=== PATIENT | female | born 1965 | race Two or more races ===

== ENCOUNTER 2023-11-12 14:40 | Emergency (ER) | payer SELFPAY ==
[2023-11-12 14:44] VITALS: BP 158/81
[2023-11-12 15:31] VITALS: BMI 40.2
[2023-11-12 15:51] LABS: % Eosinophils 4.4 % (0-6); % Immature Granulocytes 0.2 % (0-0.5); % Lymphocytes 28.1 % (20.5-51.1); % Monocytes 8.6 % (1.7-9.3); % Neutrophils 57.7 % (42.2-75.2); Absolute Basophils 0.1 10^3/uL (0-0.2); Absolute Eosinophils 0.3 10^3/uL (0-0.7); Absolute Lymphocytes 1.7 10^3/uL (1.2-3.4); Absolute Monocytes 0.5 10^3/uL (0.1-0.6); Absolute Neutrophils 3.4 10^3/uL (1.4-6.5); Hemoglobin 13.5 g/dL (12.0-16.0); Mean Corp Hgb Conc. 35.5 g/dL (33.0-37.0); Mean Corpuscular Volume 81.7 fL (81.0-99.0); Mean Platelet Volume 11.9 fL (7.4-10.4); Nucleated Red Blood Cells % 0 %; Platelet Count 185 10^3/uL (130-400); Red Blood Cell Count 4.65 10^6/uL (4.20-5.40)
[2023-11-12 16:09] LABS: ALT (SGPT) 19 U/L (0-35); AST (SGOT) 24 U/L (14-36); Albumin 4.6 g/dl (3.5-5.0); Alkaline Phosphatase 49 U/L (38-126); Blood Urea Nitrogen 22 mg/dl (7-17); Calcium 9.8 mg/dl (8.4-10.2); Carbon Dioxide 25 mmol/L (22-30); Chloride 107 mmol/L (98-107); Estimated Creatinine Clearance > 125 ml/min; Glucose 101 mg/dl (70-99); Potassium 4.2 mmol/L (3.5-5.1); Sodium 141 mmol/L (135-145); Total Bilirubin 0.8 mg/dl (0.2-1.3); Total Protein 7.6 g/dl (6.3-8.2); eGFR > 60.00
[2023-11-12 17:54] VITALS: BP 143/88
--- NOTE | 2023-11-12 19:47 | ED.GENMED ---
History of Present Illness
General
Chief Complaint: Cough
Source: patient
Exam Limitations: none
Time Seen by Provider: 11/12/23 15:01
Nursing documentation reviewed up to this point in time: agreed with
Travel History
Have you had any contact with someone who has COVID-19?: No
Do you have any symptoms of coronavirus? Fever > 100 degrees, chills, cough, shortness of breath, sore throat, loss of taste or smell, muscle aches, or headache?: Yes
Symptoms:: cough
History of Present Illness
History of Present Illness:
Patient to ED with complaint of cough x 2 weeks. States sputum is brown and occasionally has blood streaks. Denies any cp/pressure, SOB. Denies fever/chills. Brought self to ED for eval. Notes occasional bilateral calf pain.
Past History
Past History
ED Past Medical History: Cancer (non-hodgkins lymphoma)
Review of Systems
Review of Systems
Allergies reviewed?: Yes
All Other Systems: ROS reviewed and negative except as documented in HPI and ROS
Constitutional: Reports no symptoms
EENT: Reports no symptoms
Respiratory: Reports cough
Cardiac: Reports no symptoms
ABD/GI: Reports no symptoms
: Reports no symptoms
Musculoskeletal: Reports no symptoms
Skin: Reports no symptoms
Neurological: Reports no symptoms
Psychiatric: Reports no symptoms
Phy Exam
General Physical Exam
General Presentation: well appearing and no apparent distress
General age: appears stated age
General Skin: warm and dry
General Habitus: normal
General Mental: alert
Cardiovascular Exam
Cardiovascular Exam: regular rate/rhythm and no edema
Pulmonary Exam
Pulmonary Exam: lungs clear and no respiratory distress
Musculoskeletal Exam
Musculoskeletal Exam: full ROM and neuro vasc intact
Skin Exam
Skin Exam: normal color, warm/dry and no rash
Psychiatric Exam
Psychiatric Exam: normal mood/affect
Course
Orders/Labs/Results
Orders:
Orders
11/12/23 15:20
CR Chest - 2 Views Urgent
Comment:
Reason For Exam: cough
11/12/23 15:42
Complete Blood Count/With Diff Urgent
Comprehensive Metabolic Panel Urgent
11/12/23 15:43
US Periph Venous LOWER Ext Rogeiro Urgent
Comment:
Reason For Exam: bilat calf pain
Abnormal Lab Results
11/12/23
15:42
MPV 11.9 H fL
(7.4-10.4)
BUN 22 H mg/dl
(7-17)
Glucose 101 H mg/dl
(70-99)
11/12/23 15:42
11/12/23 15:42
Vital Signs
Initial and Last Documented VS:
Initial Vital Signs
Temp Pulse Resp BP Pulse Ox
97.9 F 90 20 158/81 96
11/12/23 14:44 11/12/23 14:44 11/12/23 14:44 11/12/23 14:44 11/12/23 14:44
Last Documented Vital Signs
Temp Pulse Resp BP Pulse Ox
97.9 F 87 16 143/88 96
11/12/23 14:44 11/12/23 17:54 11/12/23 17:54 11/12/23 17:54 11/12/23 17:54
*Radiology
Radiology exam reviewed: radiology read reviewed
*Pulse Oximetry
Patient hypoxic: no
*Critical Care Note
Total Time (30-74mins, 75-104mins- exclusive of procedures): Not Applicable
ED Attending Note
-
Portions of this chart may have been created with voice recognition software.� Occasional wrong word or��sound alike� substitutions may have occurred due to the inherent limitations of voice recognition software.
Discharge Plan
Departure
Patient Disposition: Home (Routine Discharge)
Date of Disposition: 11/12/23
Time of Disposition: 17:12
Patient with high blood pressure during this ER visit?: No
Condition: Good
Covid-19: Not Applicable
Discharge Problem:
Cough
Instructions: Cough, Adult (DC)
Referrals:
[facility] [Outside[facility] - Next open appointment
UNKNOWN - PT DOES,NOT KNOW [Family Provider] -
Interventions
Interventions:
*Risk Screen - Suicide Last Done: 11/12/23 14:44
*General Assessment Last Done: 11/12/23 14:44
*Neglect/Abuse Screening Last Done: 11/12/23 14:44
ED- Fall Risk Assessment Last Done: 11/12/23 16:26
*ED COVID-19 Vaccine History Last Done: 11/12/23 17:56
*Nursing Disposition Last Done: 11/12/23 17:56
ED- Pulmonary Assessment Last Done: 11/12/23 16:26
Discharge Date and Time
Discharge Date/Time: 11/12/23 17:56
Print Language: SETSWANA
== END 2023-11-12 17:56 | disposition home or self-care (01) ==
LOC: EMR 14:40
PROVIDERS: Nurse Practitioner; EMERGENCY PHYSICIAN Emergency Medicine
DX: R05.9 Cough, unspecified (principal); M79.662 Pain in left lower leg; M79.661 Pain in right lower leg
CPT/HCPCS: 99284; 71046; 80053; 85025; 93970

== ENCOUNTER → 2024-03-02 09:33 | Outpatient (REF) | payer SELFPAY | LOC: WDC 09:33 | PROVIDERS: ATTENDING PHYSICIAN Obstetrics & Gynecology Gynecology | DX: N64.4 Mastodynia (principal) | CPT/HCPCS: 76642; 77062; 77066 ==

== ENCOUNTER 2024-08-29 15:07 | Emergency (ER) | payer OTHER, SELFPAY ==
[2024-08-29 15:08] VITALS: BP 162/111
[2024-08-29 15:43] LABS: % Basophils 0.9 % (0-2); % Eosinophils 3.3 % (0-6); % Immature Granulocytes 0.2 % (0-0.5); % Lymphocytes 35.6 % (20.5-51.1); % Monocytes 7.8 % (1.7-9.3); % Neutrophils 52.2 % (42.2-75.2); Absolute Basophils 0.1 10^3/uL (0-0.2); Absolute Eosinophils 0.2 10^3/uL (0-0.7); Absolute Lymphocytes 2.1 10^3/uL (1.2-3.4); Absolute Monocytes 0.5 10^3/uL (0.1-0.6); Hematocrit 40.3 % (37.0-47.0); Hemoglobin 13.4 g/dL (12.0-16.0); Mean Corp Hgb Conc. 33.3 g/dL (33.0-37.0); Mean Corpuscular Hgb 28.3 pg (27.0-31.0); Mean Corpuscular Volume 85.2 fL (81.0-99.0); Mean Platelet Volume 11.7 fL (7.4-10.4); Nucleated Red Blood Cells % 0 %; Platelet Count 166 10^3/uL (130-400); Red Blood Cell Count 4.73 10^6/uL (4.20-5.40); White Blood Cell Count 5.8 10^3/uL (4.8-10.8)
[2024-08-29 15:53] LABS: Troponin I < 0.012 ng/ml
[2024-08-29 16:01] LABS: ALT (SGPT) 26 U/L (0-35); AST (SGOT) 23 U/L (14-36); Albumin 4.5 g/dl (3.5-5.0); Alkaline Phosphatase 55 U/L (38-126); Blood Urea Nitrogen 18 mg/dl (7-17); Carbon Dioxide 29 mmol/L (22-30); Chloride 102 mmol/L (98-107); Glucose 89 mg/dl (70-99); Potassium 4.3 mmol/L (3.5-5.1); Sodium 139 mmol/L (135-145); Total Bilirubin 1.3 mg/dl (0.2-1.3); Total Protein 7.2 g/dl (6.3-8.2); eGFR > 60.00
[2024-08-29 17:29] VITALS: BP 153/97
[2024-08-29 18:00] VITALS: BP 147/80
--- NOTE | 2024-08-29 18:38 | ED.GENMED ---
History of Present Illness
<Stephanie Vela PA-C - Last Filed: 08/30/24 00:08>
General
Chief Complaint: Extremity Pain (non-traumatic)
Source: patient
Exam Limitations: none
Time Seen by Provider: 08/29/24 17:50
Nursing documentation reviewed up to this point in time: agreed with
History of Present Illness
History of Present Illness:
pt is a 59 y/o F with h/o NHL treated 2017 chemo george
VILLARRE[facility]
here with L arm pain yu tfeels like a squeezing sensation coming an dgoing for 2-3 weeks
does go to the gym, does lift weights but hasn't been there in over a week
says that she is always aware of her L arm being sore here and there and having some tingling occasionally into her fingers or pain that radiates into the foremarm
but last night at midnight while lyin gin bed the pain became severe and was uncomfortable and lasted about 30 minutes before easing but never went away; she didn't sleep well because of the pain
she has since has some mild pain today but nothing like it was
she hasn't taken anything for th epain
does not have the abulity to reproduce the pain with movement, palpation
doesn't really feel it shooting from her neck
it felt more like a cuff was squeezing it last night
pt concerned because her dad and brother both had RI's < 55
she has never seen cards
pt does lift her grandkids but doesn't recall specific injury
Past History
<Stephanie Vela PA-C - Last Filed: 08/30/24 00:08>
Past History
ED Past Medical History: Cancer (non-hodgkins lymphoma)
Social History
Tobacco: Non-smoker
Alcohol: None
Drug: None
Personal:
Living: with family
Review of Systems
<Stephanie Vela PA-C - Last Filed: 08/30/24 00:08>
Review of Systems
Allergies reviewed?: Yes
All Other Systems: Not applicable
Phy Exam
<Stephanie Vela PA-C - Last Filed: 08/30/24 00:08>
Physical Exam
Physical Exam:
GENERAL: Alert , in no apparent distress
EYE: pupils equal and reactive
NECK: Supple no midline tenderness
ENT: o/p clr, mmm.
CARDIAC: Regular rate and rhythm .
LUNGS: Clear breath sounds bilaterally, no acute respiratory distress, no wheezes/rales/rhonchi
Chest Wall no reproducible tenderness
ABDOMEN: Soft, without focal tenderness, no r/g, no cvat, normal bowel sounds
NEUROLOGICAL: Alert and oriented, no focal neuro deficits
SKIN: Warm and dry, skin intact.
MUSCULOSKELETAL:, Able to lift arm overhead normal inspection of the left arm, shoulder, upper arm, lower arm, normal range of motion, no swelling, no redness, normal perfusion, normal radial pulse, no paresthesias, normal strength
PSYCH: Normal and appropriate interaction.
Course
<Stephanie Vela PA-C - Last Filed: 08/30/24 00:08>
Orders/Labs/Results
Orders:
Orders
08/29/24 15:08
ECG [Electrocardiogram (*1)] Urgent
Reason for Study: Other
Other Reason for Exam: L arm pain
EKG- Treatment ONCE
08/29/24 15:21
Complete Blood Count/With Diff Urgent
Comprehensive Metabolic Panel Urgent
Troponin I Urgent
08/29/24 19:25
Electrocardiogram (*1) Urgent
Reason for Study: Chest Pain
EKG- Treatment ONCE
08/29/24 19:30
CR Chest - 2 Views Urgent
Comment:
Reason For Exam: chest and arm pain
08/29/24 19:36
Troponin I Urgent
Abnormal Lab Results
08/29/24
15:21
MPV 11.7 H fL
(7.4-10.4)
BUN 18 H mg/dl
(7-17)
08/29/24 15:21
08/29/24 15:21
Vital Signs
Initial and Last Documented VS:
Initial Vital Signs
Temp Pulse Resp BP Pulse Ox
36.6 C 82 18 162/111 98
08/29/24 15:08 08/29/24 15:08 08/29/24 15:08 08/29/24 15:08 08/29/24 15:08
Last Documented Vital Signs
Temp Pulse Resp BP Pulse Ox
36.6 C 84 18 144/82 99
08/29/24 15:08 08/29/24 20:52 08/29/24 20:52 08/29/24 20:52 08/29/24 20:52
<Sd Fontenot MD - Last Filed: 08/29/24 19:46>
Orders/Labs/Results
Orders:
Orders
08/29/24 15:08
ECG [Electrocardiogram (*1)] Urgent
Reason for Study: Other
Other Reason for Exam: L arm pain
EKG- Treatment ONCE
08/29/24 15:21
Complete Blood Count/With Diff Urgent
Comprehensive Metabolic Panel Urgent
Troponin I Urgent
08/29/24 19:25
Electrocardiogram (*1) Urgent
Reason for Study: Chest Pain
EKG- Treatment ONCE
08/29/24 19:30
CR Chest - 2 Views Urgent
Comment:
Reason For Exam: chest and arm pain
08/29/24 19:36
Troponin I Urgent
Abnormal Lab Results
08/29/24
15:21
MPV 11.7 H fL
(7.4-10.4)
BUN 18 H mg/dl
(7-17)
08/29/24 15:21
08/29/24 15:21
Vital Signs
Initial and Last Documented VS:
Initial Vital Signs
Temp Pulse Resp BP Pulse Ox
36.6 C 82 18 162/111 98
08/29/24 15:08 08/29/24 15:08 08/29/24 15:08 08/29/24 15:08 08/29/24 15:08
Last Documented Vital Signs
Temp Pulse Resp BP Pulse Ox
36.6 C 84 18 144/82 99
08/29/24 15:08 08/29/24 20:52 08/29/24 20:52 08/29/24 20:52 08/29/24 20:52
<Stephanie Vela PA-C - Last Filed: 08/30/24 00:08>
MDM/Problems Addressed
Differential Diagnosis Includes:
musculoskeletal pain, angina/ACS, radiculopathy, neuropathy
MDM/Problems Addressed:
59 y/o F
ho NHL treated, considered cancer free
here with LUE pain which is fairly constant but waxes and wanes at times, she says 'i'm usually aware of it' but it gets worse sometimes
not really reproducible
not exertional
occasionally with L axillary/upper chest wall pain too but not always associated
no sob
last night pain much worsse for a brief time and now she is very nervous about RI
her brother and dad had premature CAD
t has never seen cards
ekg is very subtle st scooping laterally but no depressions, no elevations
her troponin x 2 was neg
cxr clear
seen by ed attending
will place pt in chest pain hotline
<Stephanie Vela PA-C - Last Filed: 08/30/24 00:08>
*Critical Care Note
Total Time (30-74mins, 75-104mins- exclusive of procedures): Not Applicable
ED Attending Note
<Stephanie Vela PA-C - Last Filed: 08/30/24 00:08>
-
Portions of this chart may have been created with voice recognition software.� Occasional wrong word or��sound alike� substitutions may have occurred due to the inherent limitations of voice recognition software.
<Sd Fontenot MD - Last Filed: 08/29/24 19:46>
ED Attending Note
Patient seen and examined by attending physician: Yes
ED Attending Note:
I have seen and evaluated the patient with a [id number] encounter. I have spoken to the advance practicer provider and involved in the medical history, the physical exam, medical decision making.
Evaluation and management service: agree unless noted differently below.
Results interpretation: agree unless noted differently below.
Focused HPI: 59-year-old female with history as noted presents for evaluation of left arm pain. Patient reports symptoms have been intermittent for at least a month or 2 and generally very mild and nagging. No clear trigger noted. She describes
aching pain in the left bicep region. She denies any associated chest pain to me although she has occasionally had pain in the lateral breast not necessarily associated with this arm pain for which she has seen her [employer]AM [employer]BER. She has no exertional
symptoms. She says that last night while she was lying in bed she had a more intense episode of her left bicep pain which she describes as 'like a blood pressure cuff inflating on my arm.' She says it was an intense squeezing sensation. She says
that it lasted for over an hour eventually she repositioned her arms and it seemed to go away and she was able to get the sleep. She says that she has a very strong family history of RI and was concerned that this could be heart related and so she
came to the ER for assessment. No shortness of breath, nausea, diaphoresis. She denies any dizziness. She denies any other complaints.
Physical exam: Awake and alert nondistressed. Hypertensive in triage normalized by my assessment. Rest of vitals normal. She has no reproducible tenderness in the bicep region, no skin changes or rash. She has good pulses throughout the left
upper extremity. She has no edema in the left lower extremity. She is able to move left shoulder and elbow through full active range of motion with no pain whatsoever. She has no reproducible tenderness in the left shoulder/neck or in the chest
wall/breast. Her lungs sound clear to auscultation. No cardiac rubs gallops or murmurs appreciated. She has no edema in her extremities.
Medical Decision Makin-year-old female presents for evaluation of left arm pain intermittent for a few months but more intense episode last night. No exertional component to her symptoms, last night symptoms seem to rodolfo after repositioning;
however there is no clear trigger or positional component to this and it is not reproducible to the touch or movement on exam today. She does have a very strong family history of heart disease. Vitals and exam as above. Her labs here are
unremarkable including undetectable troponin. EKG shows sinus rhythm with no ST changes or T wave abnormalities. Low suspicion for emergent pathology�she has no pulse abnormality to suggest vascular disease, no edema to suggest DVT. She has no
symptoms at present and although she had hypertension in triage it has normalized now�very low suspicion that this is vascular emergency such as aortic dissection. Symptoms very atypical for angina with no exertional component, no associated chest
pain or shortness of breath only pain in the left bicep region however given her family history of heart disease I do think she should have full assessment to rule out anginal equivalent; will repeat troponin here if negative we will arrange for
close outpatient follow-up with cardiology of ER chest pain hotline.
Discharge Plan
Departure
Patient Disposition: Home (Routine Discharge)
Date of Disposition: 08/29/24
Time of Disposition: 20:27
Patient with high blood pressure during this ER visit?: Yes
Condition: Fair
Covid-19: Not Applicable
Discharge Problem:
Chest pain, Arm pain
Instructions: Chest Pain DCA Follow Up
Referrals:
NONE,* [Family Provider] -
Karen,Tisha, DO [Active] - Follow up in 2-3 days (YOU SHOULD BE RECEIVING A PHONE CALL)
Activity Restrictions/Additional Instructions:
YOU WERE SEEN FOR ARM PAIN WHICH DOES NOT SEEM TO BE CAUSED BY [facility] BUT WE WANT YOU TO BE SEEN PROMPTLY BY THE CYTOLOGY LABORATORY MANAGER FOR FOLLOW UP
YOU SHOULD BE RECEIVING A PHONE CALL WITHIN A FEW DYAS TO SCHEDULE
IN THE MEANTIME AVOID STRENUOUS ACTIVITY AND HEAVY LIFTING
TAKE A BABY ASPIRIN ONCE A DAY UNTIL YOU SEE THE CYTOLOGY LABORATORY MANAGER
RETURN FOR: SEVERE WORSE PAIN, COLOR CHANGE, ARM SWELLING, TROUBLE BREATHING, EXERTIONAL PAIN, ARM WEAKNESS, FEVER OR ANY CONCENRS.
Interventions
Interventions:
*Risk Screen - Suicide Last Done: 08/29/24 15:12
*General Assessment Last Done: 08/29/24 17:14
*Neglect/Abuse Screening Last Done: 08/29/24 15:12
*ED- Fall Risk Assessment Last Done: 08/29/24 17:14
*ED COVID-19 Vaccine History Last Done: 08/29/24 15:12
*Nursing Disposition Last Done: 08/29/24 20:52
ED-Skin Assessment Last Done: 08/29/24 17:18
ED-Peripheral Vascular Assessment Last Done: 08/29/24 17:14
ED-Musculoskeletal Assessment Last Done: 08/29/24 17:14
Discharge Date and Time
Discharge Date/Time: 08/29/24 20:53
Print Language: MALDIVIAN
[2024-08-29 19:00] VITALS: BP 148/88
[2024-08-29 20:07] LABS: Troponin I < 0.012 ng/ml
[2024-08-29 20:52] VITALS: BP 144/82
== END 2024-08-29 20:53 | disposition home or self-care (01) ==
LOC: EMR 15:07
PROVIDERS: Physician Assistant; EMERGENCY PHYSICIAN Emergency Medicine
DX: R07.89 Other chest pain (principal); M79.602 Pain in left arm; Z85.72 Personal history of non-Hodgkin lymphomas
CPT/HCPCS: 99285; 71046; 80053; 84484; 85025; 93005

== ENCOUNTER → 2024-09-27 14:56 | Outpatient (REF) | payer OTHER, SELFPAY | LOC: RCS 14:56 | PROVIDERS: ATTENDING PHYSICIAN Internal Medicine Cardiovascular Disease | DX: R06.09 Other forms of dyspnea (principal); R07.2 Precordial pain | CPT/HCPCS: 93306 ==

== ENCOUNTER → 2024-10-11 12:04 | Outpatient (REF) | payer OTHER, SELFPAY | LOC: HWRCS 12:04 | PROVIDERS: ATTENDING PHYSICIAN Internal Medicine Cardiovascular Disease | DX: R06.09 Other forms of dyspnea (principal); R07.89 Other chest pain | CPT/HCPCS: 78452; 93017; A9500; J2785 ==

== ENCOUNTER 2024-10-24 13:35 | Day surgery (SDC) | payer OTHER, SELFPAY ==
[2024-10-24] VITALS (21 sets, daily range): BP systolic 100–170; BP diastolic 69–100; BMI 38.8
[2024-10-24 00:36] LABS: % Basophils 0.8 % (0-2); % Eosinophils 3.6 % (0-6); % Monocytes 8.7 % (1.7-9.3); % Neutrophils 43.9 % (42.2-75.2); Absolute Basophils 0.1 10^3/uL (0-0.2); Absolute Eosinophils 0.2 10^3/uL (0-0.7); Absolute Lymphocytes 2.8 10^3/uL (1.2-3.4); Absolute Monocytes 0.6 10^3/uL (0.1-0.6); Absolute Neutrophils 2.8 10^3/uL (1.4-6.5); Hematocrit 40.9 % (37.0-47.0); Hemoglobin 13.8 g/dL (12.0-16.0); Mean Corp Hgb Conc. 33.7 g/dL (33.0-37.0); Mean Corpuscular Volume 85.9 fL (81.0-99.0); Mean Platelet Volume 11.9 fL (7.4-10.4); Nucleated Red Blood Cells % 0 %; Platelet Count 173 10^3/uL (130-400); Red Blood Cell Count 4.76 10^6/uL (4.20-5.40); Red Cell Dist. Width 12.7 % (11.5-14.5); White Blood Cell Count 6.4 10^3/uL (4.8-10.8)
[2024-10-24 00:45] LABS: PT 14.5 Sec (11.4-14.6)
[2024-10-24 00:46] LABS: APTT 32.4 Sec (23.4-35.0)
[2024-10-24 00:54] LABS: ALT (SGPT) 21 U/L (0-35); AST (SGOT) 21 U/L (14-36); Alkaline Phosphatase 62 U/L (38-126); Blood Urea Nitrogen 20 mg/dl (7-17); Calcium 10.2 mg/dl (8.4-10.2); Carbon Dioxide 27 mmol/L (22-30); Chloride 103 mmol/L (98-107); Glucose 90 mg/dl (70-99); Potassium 3.9 mmol/L (3.5-5.1); Sodium 142 mmol/L (135-145); Total Bilirubin 1.1 mg/dl (0.2-1.3); Total Protein 7.5 g/dl (6.3-8.2); eGFR > 60.00
--- NOTE | 2024-10-24 02:54 | ED.GENMED ---
History of Present Illness
General
Chief Complaint: Extremity Pain (non-traumatic)
Source: patient
Exam Limitations: none
Time Seen by Provider: 10/24/24 01:56
Nursing documentation reviewed up to this point in time: agreed with
History of Present Illness
History of Present Illness:
Pleasant 59-year-old female who presents with weeks of left arm pain. Patient was seen in the emergency department on August 29 for identical pain. At that point it had been going on for several weeks prior. Patient concerned that the pain may be
related to her heart. Her brother and father had heart attacks Prior to the age of 55. Patient has had an echo and a nuclear stress. She is due to a CT angiogram. Patient is hesitant to get a cath because her mom had a catheterization and went
into a coma and never woke up, according to patient. Patient sees Dr. Van
Vital signs are stable. Patient not hypoxic
Nursing note reviewed. I agree with nursing documentation up to this point in time.
Home Meds and allergies reviewed.
NUMBER AND COMPLEXITY OF PROBLEMS ADDRESSED AT THE ENCOUNTER
� Chronic conditions affecting care: Non-Hodgkin's lymphoma
� Acute Exacerbation and/or Progression of Chronic Illness:
� Differential Diagnosis includes: Musculoskeletal chest pain, DVT, cardiac, ACS
AMOUNT AND/OR COMPLEXITY OF DATA TO BE REVIEWED AND ANALYZED
I performed an independent evaluation of the following and my interpretation is:
EKG: EKG shows sinus rhythm rate of 63 with first-degree AV block GA interval is 2 is 36 ms. Otherwise normal intervals, indeterminate axis. No evidence of acute ischemia present.
Pulse Ox: Not Hypoxic
Concert Pianist: Sinus Rhythm
CT:
X-rays:
Ultrasound:
Laboratory Studies: Troponin of 0.027. Second troponin 0.042 and elevated.
Other:
Review of other/old records:
Echocardiogram from 09/27/2024 :
CONCLUSIONS
Normal left ventricular size and systolic function. No regional wall motion
abnormalities are seen. LV ejection fraction is 55% by Elkins's biplane method
of discs. Normal diastolic function.
Normal right ventricular size and function.
No significant valvular pathology
No prior study for comparison
Lexiscan stress test dated 10/11/2024
CONCLUSION:
Inconclusive ECG for ischemia given the pharmacological study. No S or T wave changes are seen
Small, mild, partially reversible inferolateral defect potentially consistent with a small area of ischemia. Some reversibility persists even with prone imaging.
Systolic function is normal. The ejection fraction is 55%. There is focal mid anterior hypokinesis
Stress Risk is moderate due to pharmacologic agent used.
No previous study available for comparison.
Clinical information was obtained by an independent historian:
Prescriptions/Medications Considered but not given:
Further testing considered but not performed:
RISK OF COMPLICATIONS AND/OR MORBIDITY OR MORTALITY OF PATIENT MANAGEMENT
Social determinants of health affecting care: Good Social Support
Discussion with other providers:
Escalation of care including admission/observation vs risk of discharge considered: After being observed in the emergency department, patient is
CRITICAL CARE NOTE:
Critical care statement: A total of 34 minutes of critical care time was provided for this patient. This time is separate from time utilized to perform the aforementioned documented procedures. Aggregate critical care time includes only time
during which I was engaged in work directly related to the patient's care, as described above, whether at the bedside or elsewhere in the Emergency Department.
Total Time (exclusive of procedures):34
Update:
Past History
Past History
ED Past Medical History: Cancer (non-hodgkins lymphoma)
Social History
Tobacco: Non-smoker
Alcohol: None
Drug: None
Personal:
Living: with family
Review of Systems
Review of Systems
Allergies reviewed?: Yes
All Other Systems: ROS reviewed and negative except as documented in HPI and ROS
Constitutional: Reports no symptoms
EENT: Reports no symptoms
Respiratory: Reports no symptoms
Cardiac: Reports no symptoms
ABD/GI: Reports no symptoms
: Reports no symptoms
Musculoskeletal: Reports muscle pain (Left arm pain)
Skin: Reports no symptoms
Neurological: Reports no symptoms
Endocrine: Reports no symptoms
Hematologic/Lymphatic: Reports no symptoms
Psychiatric: Reports anxiety
Phy Exam
General Physical Exam
General Presentation: well appearing and no apparent distress
General Skin: warm and dry
General Habitus: normal
General Mental: alert
General Hydration: appears well hydrated
ENT Exam
ENT Exam: EOMI, pharynx normal, neck supple and normocephalic
Eye Exam
Eye Exam: PERRL, cornea clear and conjunctiva normal
Cardiovascular Exam
Cardiovascular Exam: regular rate/rhythm, no edema, no murmur and normal peripheral pulses
Pulmonary Exam
Pulmonary Exam: lungs clear, no respiratory distress, no rales, no crackles, no rhonchi, no stridor, no wheezing and no cough
Gastrointestinal Exam
Gastrointestinal Exam: normal bowel sounds, non tender, soft, no organomegaly, no pulsatile mass and non distended
Neurological Exam
Neurological Exam: alert, oriented x3, no motor deficits and speech normal
Musculoskeletal Exam
Musculoskeletal Exam: full ROM, no edema and neuro vasc intact (Left arm: Good distal pulses in the left wrist. Good coloration of skin. No ecchymosis, skin is normothermic, no swelling noted)
Skin Exam
Skin Exam: normal color, warm/dry, no rash and no petechia
Psychiatric Exam
Psychiatric Exam: normal mood/affect
Course
Orders/Labs/Results
Orders:
Orders
10/24/24 00:28
Complete Blood Count/With Diff Urgent
Comprehensive Metabolic Panel Urgent
PTT Urgent
Prothrombin Time Urgent
10/24/24 02:08
US Arms, Left [US Periph Venous UPPER Ext LT] Urgent
Comment:
Reason For Exam: pain/pressure
10/24/24 03:01
Electrocardiogram (*1) Urgent
Reason for Study: QTc Monitoring
EKG- Treatment ONCE
10/24/24 03:12
Troponin I Urgent
10/24/24 05:46
Troponin I Urgent
Abnormal Lab Results
10/24/24 10/24/24
00:28 05:46
MPV 11.9 H fL
(7.4-10.4)
BUN 20 H mg/dl
(7-17)
Troponin I 0.042 H* D ng/ml
10/24/24 00:28
10/24/24 00:28
Vital Signs
Initial and Last Documented VS:
Initial Vital Signs
Temp Pulse Resp BP Pulse Ox
97.4 F 68 20 170/100 100
10/24/24 00:13 10/24/24 00:13 10/24/24 00:13 10/24/24 00:13 10/24/24 00:13
Last Documented Vital Signs
Temp Pulse Resp BP Pulse Ox
97.4 F 78 16 138/92 95
10/24/24 00:13 10/24/24 07:13 10/24/24 07:13 10/24/24 07:13 10/24/24 05:00
*Radiology
Radiology exam reviewed: radiology read reviewed
*Pulse Oximetry
Patient hypoxic: no
*Critical Care Note
Total Time (30-74mins, 75-104mins- exclusive of procedures): Not Applicable
Update Note
Update Note:
Ultrasound of the left upper extremity negative for DVT
This arm pain has been present since the beginning of August or sooner. Patient has had echocardiogram and stress test. She is scheduled for further testing of her heart.
Patient's second troponin elevated. I contacted Dr. Du who Agreed to have someone from his group, evaluate the patient.
ED Attending Note
-
Portions of this chart may have been created with voice recognition software.� Occasional wrong word or��sound alike� substitutions may have occurred due to the inherent limitations of voice recognition software.
Discharge Plan
Departure
Prescriptions:
No Action
No Current Medications
0
Referrals:
NONE,* [Family Provider] -
Interventions
Interventions:
*Risk Screen - Suicide Last Done: 10/24/24 00:13
*General Assessment Last Done: 10/24/24 01:38
*Neglect/Abuse Screening Last Done: 10/24/24 00:13
*ED- Fall Risk Assessment Last Done: 10/24/24 01:38
*ED COVID-19 Vaccine History Last Done: 10/24/24 01:38
ED-Skin Assessment Last Done: 10/24/24 00:39
ED-Peripheral Vascular Assessment Last Done: 10/24/24 07:17
ED-Musculoskeletal Assessment Last Done: 10/24/24 00:39
Discharge Date and Time
Print Language: MICRONESIAN
[2024-10-24 03:56] LABS: Troponin I 0.027 ng/ml
[2024-10-24 06:44] LABS: Troponin I 0.042 ng/ml
[2024-10-24] MEDS: HEPARIN 4000 UNITS IV (07:34)
[2024-10-24] MEDS: HEPARIN 25000 UNITS/250 ML IV (07:46)
--- NOTE | 2024-10-24 10:58 | CON.CAR ---
Addendum entered and electronically signed by Garo Cho MD 10/24/24 11:28:
I saw and examined the patient.
The AIR QUALITY MANAGER or PA's note was reviewed and I agree with the note.
Comment: General: Well developed, well nourished in NAD.
Neck: Supple, no JVD, HJR, carotids +2 B/L, no bruits bilaterally.
Heart: Non displaced PMI, RRR, no murmurs, No S3, S4, no rubs.
Lungs: Clear to auscultation bilaterally, no wheeze, rhonchi, rubs bilaterally,
normal expiratory phase.
Abdomen: Normal bowel sounds, soft, non-tender, non-distended.
Extremities: No clubbing, cyanosis or edema bilaterally.
Neuro: Grossly nonfocal, awake, alert and oriented x3.
Cony has a history of non-Hodgkin's lymphoma status postchemotherapy, obesity, family history of premature CAD. She had a workup for left arm pain which included a Lexiscan nuclear stress test in September 2024 which revealed a possible area of mid
and apical inferolateral ischemia. She presents with left arm pain with exertion and also occurring at rest. Troponin went from 0.027-0.042 then back to 0.22. Given persistent symptoms and abnormal stress testing she will undergo cardiac
catheterization. Will give aspirin.
Original Note:
Consultation
Consultation Request
Date/Time Consultation Performed: 10/24/24
Requesting Provider: Dr. Evans
Performing Provider: Cheri Haynes PA-C for Dr. Cho
Reason for Consultation: arm pain, elevated troponin
Medical History
-
Chief Complaint: arm pain
History of Present Illness:
Patient is a 59-year-old female with past medical history of NHL s/p chemotherapy, obesity as well as family history of premature coronary artery disease who was seen as a new patient in our office 09/04/2024 due to abnormal EKG as well as some
left-sided arm discomfort. She was ordered echocardiogram which showed preserved EF without significant valvular disease. And then she underwent Lexiscan nuclear stress test on 10/12/2024 which showed a small area of mildly decreased perfusion of
the mid and apical inferolateral segments grossly reversible with EF of 55%. Options were discussed with patient including medical therapy, further evaluation with PET/CT, versus cardiac catheterization. Patient was concerned about cardiac cath as
her mother underwent cath and reportedly went into a coma and never woke up. She also did not want to commit to medications at that point and was scheduled for PET/CT stress test on 11/13. Her brother had an ME at 52 and her father had first heart
attack at age 31. She states over the last week she has felt recurrence of left arm pain with walking in her neighborhood, which improved with time. Then last evening she had recurrence which felt like a blood pressure cuff was blown up on her arm
with associated dizziness. Symptoms lasted approximately a half hour and then improved on its own. Initial trop 0.027, repeat 0.042. Cardiology consulted for evaluation.
PMH:
NHL s/p chemotherapy
Obesity
FH of premature CAD
Past Medical History
Past Medical History: Other (in HPI)
Social History
Tobacco: Former Smoker (remote)
Alcohol: None
Personal:
Living: With Family
Employment: Employed
Family History
Family History: Early CAD
Allergies / Home Medications
Allergy/AdvReac Type Severity Reaction Status Date / Time
valacyclovir Allergy Severe Anaphylaxis Verified 10/24/24 00:15
amoxicillin [From Augmentin] Allergy Mild Rash Verified 10/24/24 00:15
clavulanic acid Allergy Mild Rash Verified 10/24/24 00:15
[From Augmentin]
vancomycin Allergy Mild Rash Verified 10/24/24 00:15
�Medication �Instructions �Recorded �Confirmed �Type
No Meds [No Current Medications] 10/24/24 10/24/24 History
Review of Systems
-
History Source: Patient
All other systems: Negative unless noted
Physical Exam
Vital Signs
Temp Pulse Resp BP Pulse Ox
97.4 F 84 16 125/80 98
10/24/24 00:13 10/24/24 09:12 10/24/24 09:12 10/24/24 09:12 10/24/24 07:00
Lab Results
10/24/24 00:28
10/24/24 00:28
Troponin I 0.042 ng/ml H* D 10/24/24 05:46
Physical Exam
General: No Apparent Distress, Comfortable and Other (obese)
HEENT: Normocephalic, Anicteric and Moist Mucous Membranes
Respiratory: Clear and Non Labored Respirations
Cardiac: S1/S2 and Regular Rhythm
GI: Soft, Non Tender and Normal Bowel Sounds
Musculoskeletal: No Clubbing, No Cyanosis and No Edema
Skin: Warm and Dry
Neuro: AO x 3
Impression / Plan
-
Primary Fundraising Consultant: Dr. Umaña
Assessment:
L arm pain
Elevated troponin
Abnormal lexiscan stress test 10/11/24
NHL s/p chemotherapy
Obesity
FH of premature CAD
ECHO 09/27/24: EF 55%, no regional wall motion abnormalities, no significant valvular pathology
Lexiscan nuclear stress test 10/07/2024: small area of mildly decreased perfusion of the mid and apical inferolateral segments grossly reversible with EF of 55%
Plan:
- Patient presents with recurrence of left arm pain and dizziness. She had had abnormal Lexiscan stress test 10/07/2024 as above and had opted for further evaluation with PET/CT stress scheduled for 11/13/2024
- Initial troponin here 0.027, then 0.042
- EKG sinus rhythm
- periph US negative for RUE DVT
- Currently pain-free
- Discussed with patient recent testing and that most appropriate neck step to evaluate her symptoms would be a cardiac catheterization. She remains hesitant as her mother had catheterization and subsequently went into a coma and never woke up.
Discussed procedure with patient in detail. We discussed that cardiac catheterization is generally a well-tolerated procedure. She is agreeable to proceed
-NPO for procedure this afternoon.
-give 324mg asa now. plan for 81mg asa daily moving forward
-continue IV heparin, started in ER
-check lipids
-further recs based on results of cath
Data Reviewed
-
EKG: Tracing Personally Visualized and interpreted
Ultrasound: Report Reviewed by me
Medical Tests (Nuc Med, Echo etc): Report Reviewed by me
Labs: Labs Reviewed by me
Old Records: Reviewed
[2024-10-24 11:16] LABS: Troponin I 0.022 ng/ml
[2024-10-24] MEDS: LOW STRENGTH ASPIRIN 324 MG PO (11:33)
--- NOTE | 2024-10-24 14:04 | ITS.CL.CATH ---
Pharmacy Picking Tech - Catheterization
Cardiac Catheterization
Procedure Report:
LEFT HEART CATHETERIZATION
Date of Procedure: October 24, 2024
Referring: Garo Cho
PROCEDURES:
1. Left heart catheterization, coronary angiogram.
2. Moderate sedation.
INDICATION: Concern for NSTEMI
ACCESS: Right radial artery, 6Fr. sheath, under US guidance.
HEMODYNAMICS : (mmHg)
AO (s/d) : 126/70
LVEDP : 12
No significant gradient across the aortic valve to suggest aortic stenosis.
CORONARY FINDINGS
Dominance: Right
Left Main Trunk (LMT): Large caliber vessel that gives rise to the LAD and LCx branches and is free of angiographic disease.
Left Anterior Descending Artery (LAD): Large caliber vessel that gives off * major diagonal branches as it courses along the anterior inter-ventricular groove before wrapping around the cardiac apex. The LAD and its branches are free of
angiographic disease.
Left Circumflex Artery (LCx): Medium caliber vessel that gives off 1 major obtuse marginal (OM) branches as it courses along the atrio-ventricular (AV) groove. Mid left circumflex into OM 1 has 40 to 50% stenosis.
Right Coronary Artery (RCA): Large caliber dominant vessel that gives rise to the posterior descending artery (RPDA) and postero-lateral ventricular (RPLV) branches distally. The RPDA is a small caliber branching vessel with a 80% lesion in the
distal portion which is not a PCI target. Otherwise, the RCA and its branches are free of angiographic disease.
SEDATION: 27 minutes of procedural sedation was utilized. IV Midazolam and IV Fentanyl were administered. An independent medical pathology teacher was present to assist with and help manage the patient's level of consciousness and physiologic status.
RADIATION SUMMARY: Fluoro Time (min): 4.7, Dose (mGy): 418.6, DAP (Gy.cm2) : 29.1
Closure Device: There were no immediate intra-procedural complications. The sheath was pulled in the laborer carpentry dock and a vascular-band applied to the right wrist for radial artery hemostasis using the patent hemostasis technique.
CONCLUSIONS
1. The RPDA is a small caliber branching vessel with a 80% lesion in the distal portion which is not a PCI target.
2. Mid left circumflex into OM 1 has 40 to 50% stenosis.
3. LVEDP of 12 mmHg
RECOMMENDATIONS
1. Wean radial band per protocol. Monitor right hand perfusion and for bleeding from the radial site following removal of the vascular-band following trans-radial access.
2. Continue aggressive medical therapy for small vessel coronary artery disease and risk factor modification for secondary CAD prevention.
3. Hydrate with normal saline to mitigate the risk of contrast-induced acute kidney injury.
4. Follow-up with Dr. Umaña.
Copy to: Ravi Umaña, Garo Cho
Lianna Petersen MD, FACC, [facility]
--- NOTE | 2024-10-24 14:35 | HPS.HSE ---
Family Physician
-
Family Physician: * NONE
Chief Complaint
-
Left Arm Pain
History of Present Illness
Patient is a 59 y/o female past medical history of obesity who presents with recurrent left arm pain. Patient reports intermittent symptoms for last several months. Patent initially underwent work-up as outpatient for left arm pain including
echocardiogram and Lexiscan stress test. Patient presented to the emergency department overnight due to recurrent left arm pain. Patient had a mild troponin elevation of 0.042 which quickly trended down to 0.022. Patient underwent cardiac
catheterization today with evidence of small vessel coronary artery disease but no indication for PCI. Patient describes pain as an intense pressure like the 'squeeze from a blood pressure cuff'. She reports sometimes the pain involves the
shoulder. She does report intermittent neck pain which does not seem to correlate with arm symptoms. She reports numbness/tingling of fingers and toes which she attributes to prior chemotherapy. She denies numbness/tingling of the upper arm where
she experiences the pain. She reports some left lateral chest discomfort on occasion. She is currently symptom free.
Medical History
Past Medical History
Past Medical History: Reports Other
Additional Past Medical History:
Non-Hodgkin Lymphoma
Obesity
Past Surgical History: Reports Other
Additional Past Surgical History:
Cholecystectomy
Social History
Tobacco: Former Smoker (Remote)
Alcohol: None
Family History
Family History: Early CAD
Allergies / Home Medications
Allergies reflects when Allergies were last updated in [employer].
Home Medications with original date entered in [employer]
Allergy/Medication List:
Allergies
Allergy/AdvReac Type Severity Reaction Status Date / Time
valacyclovir Allergy Severe Anaphylaxis Verified 10/24/24 00:15
amoxicillin [From Augmentin] Allergy Mild Rash Verified 10/24/24 00:15
clavulanic acid Allergy Mild Rash Verified 10/24/24 00:15
[From Augmentin]
vancomycin Allergy Mild Rash Verified 10/24/24 00:15
Home Medications
No Meds [No Current Medications] 10/24/24
Review of Systems
-
History Source: Patient
A 12 point ROS was completed and negative except as noted: Yes
Constitutional: Denies Fever or Chills
Respiratory: Denies Cough or Trouble Breathing
Cardiac: Denies Chest Pain or Palpitations
Abdomen/GI: Denies Abdominal Pain, Nausea, Vomiting, Diarrhea or Constipated
Physical Exam
Vital Signs
Vital Signs
Temp Pulse Resp BP Pulse Ox
97.4 F 81 15 125/80 98
10/24/24 00:13 10/24/24 10:05 10/24/24 10:05 10/24/24 09:12 10/24/24 07:00
Physical Exam
General: Well Developed, Well Nourished and No Apparent Distress
HEENT: NormoCephalic, Anicteric, Moist mucous membranes and Atraumatic
Respiratory: Clear and Non Labored Respirations; No Wheezes, Rales or Rhonchi
Cardiac: S1/S2 and Regular Rhythm; No Murmur
GI: Soft, Non Tender, Non Distended and Normal Bowel Sounds
Rectal: Deferred by Provider
Musculoskeletal: No Clubbing, No Cyanosis and No Edema
Skin: Warm and Dry; No Rash
Neuro: Awake, Alert, Oriented and Nonfocal/grossly intact
Psych: Calm
Laboratory Results
-
10/24/24 00:28
10/24/24 00:28
Laboratory Results
PT 14.5 Sec (11.4-14.6) 10/24/24 00:28
INR 1.10 10/24/24 00:28
APTT Cancelled 10/24/24 13:50
Total Bilirubin 1.1 mg/dl (0.2-1.3) 10/24/24 00:28
AST 21 U/L (14-36) 10/24/24 00:28
ALT 21 U/L (0-35) 10/24/24 00:28
Alkaline Phosphatase 62 U/L (38-126) 10/24/24 00:28
Troponin I 0.022 ng/ml D 10/24/24 09:42
Data Reviewed
-
Medical Tests (Nuc Med, Echo, EKG etc): Report Reviewed by me
Lab Data: Labs Reviewed by me
Impression/Plan
-
Recurrent Left Arm Pain, possible related to small vessel coronary artery disease
-Symptoms do not appear to be consistent with cervical spine disease
-As patient is currently symptom free would not pursue any further imaging
-Continue aspirin, Toprol and Lipitor as started by cardiology for secondary prevention
Hx Non-Hodgkin Lymphoma s/p Chemotherapy
Code Status: Full Code
[2024-10-24] MEDS: NSS 1000 IV (14:39)
--- NOTE | 2024-10-24 15:32 | W.PN.UPDATE ---
Update Note
Progress Note Update
This is an addendum to H&P written by Serina Ndiaye on 10/24/2024.� Patient seen examined independently with PA.
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
months.� Pain above the left elbow feels like a blood pressure cuff squeezing.� Sometimes involving the whole left arm.� Occasionally has neck pain, does not seem to relate to arm pain.
Vital signs were normal.� Labs were unremarkable apart from opponent peaking at 0.042.� EKG showed sinus rhythm with first-degree AV block, LVH.� Venous ultrasound was negative for DVT of left upper extremity.� She was given aspirin and started on
heparin drip..� She underwent cardiac catheterization which showed small caliber RPDA with 80% lesion in the distal portion PCI target.� Mild left circumflex into OM1 40 to 50% stenosis.
Cardiology felt that symptoms were not typical of CAD and wanted admission for workup of other causes of pain and observation overnight.
Symptoms likely�secondary to microvascular CAD especially with improvement with aspirin and slight troponin elevation.� Symptoms not typical of cervical radiculopathy, neuropathy or CVA.� Given that she is not having symptoms currently, this would
not warrant further imaging at this time.
--- NOTE | 2024-10-24 16:13 | CM ---
Chart reviewed. Patient is independent of ADLS, lives with her in a [address], [address], 0 [address]. Plan is for the patient to return home. CM to follow
[2024-10-24] MEDS: LIPITOR 40 MG PO (18:04)
--- NOTE | 2024-10-24 18:24 | PTCARENOTE ---
Received pt post cath. VSS. Right radial site w/ r band intact. Pt denies any chest pain. Post angiography orders noted. Will monitor.
--- NOTE | 2024-10-24 22:28 | PTCARENOTE ---
received patient at the change of shift. AAOx3. at the bedside. patient denies any cp/sob. SR on tele 70s-80s. bp stable. R radial site CDI. + pulse. patient complains of 'soreness'. refusing tylenol at this time. educated patient to inform
RN with any changes. call boo within reach. independent in the room.
[2024-10-25 04:20] VITALS: BP 148/95
[2024-10-25 04:26] VITALS: BP 133/81
[2024-10-25 04:39] LABS: Hemoglobin 13.8 g/dL (12.0-16.0); Mean Corp Hgb Conc. 33.7 g/dL (33.0-37.0); Mean Corpuscular Hgb 28.7 pg (27.0-31.0); Mean Corpuscular Volume 85.2 fL (81.0-99.0); Mean Platelet Volume 12.3 fL (7.4-10.4); Platelet Count 174 10^3/uL (130-400); Red Blood Cell Count 4.81 10^6/uL (4.20-5.40); Red Cell Dist. Width 12.6 % (11.5-14.5)
[2024-10-25 05:06] LABS: Blood Urea Nitrogen 14 mg/dl (7-17); Carbon Dioxide 25 mmol/L (22-30); Chloride 107 mmol/L (98-107); Estimated Creatinine Clearance 123 ml/min; Glucose 89 mg/dl (70-99); HDL Cholesterol 46 mg/dl; LDL Cholesterol, Calculated 141 mg/dl; Potassium 4.1 mmol/L (3.5-5.1); Sodium 142 mmol/L (135-145); Total Cholesterol 210 mg/dl (50-199); Triglyceride 115 mg/dl (10-149); Very Low Density Lipoprotein 23 mg/dl (0-30); eGFR > 60.00
[2024-10-25 07:04] VITALS: BP 122/84
[2024-10-25] MEDS: LOW STRENGTH ASPIRIN 81 MG PO (08:23)
[2024-10-25] MEDS: TOPROL XL 25 MG PO (08:24)
[2024-10-25 09:07] VITALS: BP 130/87
--- NOTE | 2024-10-25 09:15 | W.PN.CARDCBS ---
Addendum entered and electronically signed by Andrae Paulson MD 10/25/24 11:04:
I saw and examined the patient.
The Cake Icer's note was reviewed and I agree with the note.
Comment:
GEN: No distress, awake, Ox3
HEENT: supple, anicteric, mmm
LUNGS: CTA, no wheezes/rales
CV: Reg, S1/S2, 1/6 syst LSB, no gallop
ABD: soft, BS+, NT/ND
EXT: No edema
NEURO: Gross non-focal
SKIN: No rash
Plan:
Catheterization results were reviewed. Plan is for medical therapy for small distal RCA lesion and moderate circumflex lesion.
add aspirin, Toprol, and atorvastatin.
Discussed lifestyle modification, weight loss, and moderate intensity aerobic exercise program.
Original Note:
Today's Communication / Plan
-
continue med therapy of CAD
asa, statin, toprol
will arrange OP cardiac follow up
ok for DC from cardiac standpoint
Impression / Plan
-
Primary Trap Setter: Dr. Umaña
Assessment:
L arm pain
Elevated troponin, suspected nonischemic myocardial injury
Abnormal lexiscan stress test 10/11/24
Status post cardiac catheterization with 80% small caliber RPDA lesion and moderate mid circumflex disease, medically managed
NHL s/p chemotherapy
Obesity
FH of premature CAD
ECHO 09/27/24: EF 55%, no regional wall motion abnormalities, no significant valvular pathology
Lexiscan nuclear stress test 10/07/2024: small area of mildly decreased perfusion of the mid and apical inferolateral segments grossly reversible with EF of 55%
Plan:
- Patient presented with left arm pain in the setting of recent abnormal Lexiscan stress test 10/11/2024. Trop peaked at 0.042
- Underwent cardiac catheterization 10/24/2024 which showed a 80% small caliber RPDA lesion, not amenable to stenting and moderate mid circumflex disease 40 to 50%. treating as nonischemic myocardial injury as symptoms appear atypical and out of
proportion to degree of CAD noted. Plan for medical management. Discussed results with patient again 10/25.
- Right wrist site clean dry and intact
- Started on aspirin 81 mg daily, Toprol 25 mg daily, Lipitor 40 mg every afternoon
- She also has significant family history of premature CAD
- periph US negative for LUE DVT
- Echocardiogram from 09/27/2024 with preserved EF
- We discussed dietary recommendations and exercise
- Okay for discharge from cardiac standpoint
- Outpatient cardiac follow-up arranged
Progress Note - Trap Setter
Subjective
Date of Service: October 25, 2024
denies arm pain overnight.
Objective
Labs:
10/25/24 04:21
10/25/24 04:21
Labs
Hgb 13.8 g/dL (12.0-16.0) 10/25/24 04:21
Hct 41.0 % (37.0-47.0) 10/25/24 04:21
Plt Count 174 10^3/uL (130-400) 10/25/24 04:21
PT 14.5 Sec (11.4-14.6) 10/24/24 00:28
INR 1.10 10/24/24 00:28
APTT Cancelled 10/24/24 13:50
Sodium 142 mmol/L (135-145) 10/25/24 04:21
Potassium 4.1 mmol/L (3.5-5.1) 10/25/24 04:21
BUN 14 mg/dl (7-17) 10/25/24 04:21
Creatinine 0.6 mg/dL (0.6-1.0) 10/25/24 04:21
Glucose 89 mg/dl (70-99) 10/25/24 04:21
Troponins
10/24/24 10/24/24 10/24/24
03:12 05:46 09:42
Troponin I 0.027 0.042 H* D 0.022 D
Vital Signs and I&O:
Vital Signs
Temp Pulse Resp BP Pulse Ox
98.3 F 70 20 130/87 96
10/25/24 07:04 10/25/24 09:07 10/25/24 07:04 10/25/24 09:07 10/25/24 07:04
Vital Signs
Temp Pulse Resp BP Pulse Ox
98.3 F 70 20 130/87 96
10/25/24 07:04 10/25/24 09:07 10/25/24 07:04 10/25/24 09:07 10/25/24 07:04
Intake & Output
10/23/24 10/24/24 10/25/24 10/26/24
07:59 07:59 07:59 07:59
Intake Total 450 / 450
Balance 450 / 450
Physical Exam
Physical Exam
GEN: No distress, awake, alert, oriented x3. obese
HEENT: supple, anicteric, mmm, eomi
LUNGS: CTA B/L, no wheezes/rales
CV: Reg, S1/S2, no murmur
ABD: soft, BS+, NT/ND
EXT: No cyanosis, clubbing, edema
NEURO: Gross non-focal
SKIN: Warm, pink, dry. No rash. R wrist site, c/d/i, soft.
[2024-10-25 10:55] VITALS: BP 132/86
--- NOTE | 2024-10-25 14:20 | W.DCSUMMARY ---
Discharge Summary
Discharge Data
Date of Admission: 10/24/24
Date of Discharge: 10/25/24
-
Pending Results: No
Hospital Course
59 y/o female past medical history of obesity
Presented with atypical chest discomfort that was described as left arm pain that improved with aspirin. Found to have an elevated troponin suspected a nonischemic myocardial event as it was reported a previous abnormal Lexiscan stress test
10/07/2024. Therefore cardiology made the decision to take for a left heart catheterization that showed an 80% small caliber right PDA lesion and moderate mid circumflex disease which will be medically managed. Will take at home Lipitor aspirin and
metoprolol. Outpatient cardiology follow-up.
DVT Study
IMPRESSION: No evidence of left upper extremity DVT.
Cath Report
CONCLUSIONS
1. The RPDA is a small caliber branching vessel with a 80% lesion in the distal portion which is not a PCI target.
2. Mid left circumflex into OM 1 has 40 to 50% stenosis.
3. LVEDP of 12 mmHg
RECOMMENDATIONS
1. Wean radial band per protocol. Monitor right hand perfusion and for bleeding from the radial site following removal of the vascular-band following trans-radial access.
2. Continue aggressive medical therapy for small vessel coronary artery disease and risk factor modification for secondary CAD prevention.
3. Hydrate with normal saline to mitigate the risk of contrast-induced acute kidney injury.
4. Follow-up with Dr. Umaña.
Seen and examined the day of discharge 10/25/2024. No new complaints. Left arm pain completely resolved.
12 point ROS completed all negative apart from what stated above
NAD
Scleral Anicteric
MMM
No JVD
CTABL
RRR, S1/S2
Soft, NT, ND, BS+
Warm, Dry
AAOx3
Calm
CAD medical management aspirin statin beta-jordan
Outpatient cardiology follow-up
Discharge home
More than 30 minutes spent in discharge including
Final examination of the patient
Summarizing hospital stay
Instructions for continuing care to all relevant caregivers
Preparation of discharge records, prescriptions, and referral forms
Total time spent (in minutes): 36mins
Discharge Plan
-
Patient Disposition: Home (Routine Discharge)
Discharge Diagnosis/Procedures: cardiac catheterization
Diet: Low Cholesterol
Driving Restrictions: No driving for 24 hours
Activity Restrictions/Additional Instructions:
Presented with atypical chest discomfort that was described as left arm pain that improved with aspirin. Found to have an elevated troponin suspected a nonischemic myocardial event as it was reported a previous abnormal Lexiscan stress test
10/07/2024. Therefore cardiology made the decision to take for a left heart catheterization that showed an 80% small caliber right PDA lesion and moderate mid circumflex disease which will be medically managed. Will take at home Lipitor aspirin and
metoprolol. Outpatient cardiology follow-up.
DVT Study
IMPRESSION: No evidence of left upper extremity DVT.
Cath Report
CONCLUSIONS
1. The RPDA is a small caliber branching vessel with a 80% lesion in the distal portion which is not a PCI target.
2. Mid left circumflex into OM 1 has 40 to 50% stenosis.
3. LVEDP of 12 mmHg
RECOMMENDATIONS
1. Wean radial band per protocol. Monitor right hand perfusion and for bleeding from the radial site following removal of the vascular-band following trans-radial access.
2. Continue aggressive medical therapy for small vessel coronary artery disease and risk factor modification for secondary CAD prevention.
3. Hydrate with normal saline to mitigate the risk of contrast-induced acute kidney injury.
4. Follow-up with Dr. Umaña.
Stand Alone Forms: DC Instructions- Cath/EP Lab
Referrals:
Maliha Phipps CRNP [Specified Professional Personl] - 11/22/24 3:40 pm (You have a cardiology follow-up appointment at the [facility] with Dr. Umaña's nurse practitioner, Maliha. Please call with questions)
Kathryn Helton MD [Active] - 10/30/24 10:00 am
()
Prescriptions:
New
atorvastatin 40 mg Tablet
40 mg PO QPM Qty: 30 0RF
aspirin 81 mg Tablet,Chewable
81 mg PO DAILY Qty: 30 0RF
metoprolol succinate 25 mg Tablet Extended Release 24 Hr
25 mg PO DAILY Qty: 30 0RF
Discharge Orders:
Discharge Patient (As Directed); Ordered 10/25/24
Ordered By: Kris Nelson
Care Plan Goals
Care Plan Goals:
Problem: Readiness for enhanced knowledge related to diagnosis and treatment plan
Goal: Understand your diagnosis and treatment plan needs, including medications if applicable.
Instructions: Know your diagnosis, underlying causes and treatment plan options, including medications if applicable. Consult with your health care team to learn about your diagnosis and treatment plan, including medications if applicable.
Discharge Date and Time
Discharge Date/Time: 10/25/24 11:50
Print Language: GUINEAN
== END 2024-10-25 11:50 | disposition home or self-care (01) ==
LOC: CATH 13:35
PROVIDERS: Nurse Practitioner; Physician Assistant; ATTENDING PHYSICIAN Internal Medicine Interventional Cardiology; EMERGENCY PHYSICIAN Student in an Organized Health Care Education/Training Program; OTHER PHYSICIAN Internal Medicine Cardiovascular Disease
DX: I25.10 Atherosclerotic heart disease of native coronary artery without angina pectoris (principal); M79.602 Pain in left arm; Z87.891 Personal history of nicotine dependence; E66.9 Obesity, unspecified; Z82.49 Family history of ischemic heart disease and other diseases of the circulatory system; Z92.21 Personal history of antineoplastic chemotherapy; Z79.82 Long term (current) use of aspirin; Z79.899 Other long term (current) drug therapy; Z85.72 Personal history of non-Hodgkin lymphomas; M54.2 Cervicalgia; Z90.49 Acquired absence of other specified parts of digestive tract; Z88.1 Allergy status to other antibiotic agents; R94.39 Abnormal result of other cardiovascular function study; Z88.0 Allergy status to penicillin; R94.31 Abnormal electrocardiogram [ECG] [EKG]
CPT/HCPCS: 99152; 99153; 80048; 80053; 80061; 84484; 85025; 85027; 85610; 85730; 93005; 93458; 93971; 96365; 96366; 99291; C1769; C1894; G0378; Q9967

== ENCOUNTER → 2025-01-31 14:36 | Outpatient (REF) | payer OTHER, SELFPAY | LOC: RAD 14:36 | PROVIDERS: ATTENDING PHYSICIAN Family Medicine | DX: R07.89 Other chest pain (principal); M54.12 Radiculopathy, cervical region | CPT/HCPCS: 72050; 72072 ==

== ENCOUNTER → 2025-06-11 18:48 | Outpatient (REF) | payer OTHER, SELFPAY | LOC: WDC 18:48 | PROVIDERS: ATTENDING PHYSICIAN Obstetrics & Gynecology Gynecology; FAMILY PHYSICIAN Family Medicine | DX: Z12.31 Encounter for screening mammogram for malignant neoplasm of breast (principal) | CPT/HCPCS: 77063; 77067 ==